=== PATIENT | male | born 1950 | race Two or more races ===

== ENCOUNTER 2019-12-11 07:42 | Emergency (ER) | payer OTHER ==
[2019-12-11 07:49] VITALS: BP 160/72; PULSE 67; TEMP 98.6; BMI 24.0
--- NOTE | 2019-12-11 08:01 | PDOC ---
Rapid Medical Evaluation Chief Complaint: Poison [place],Poison Yanelis Exposure Time Seen by Provider: 12/11/19 07:52 Medical Evaluation: Allergies Allergy/AdvReac Type Severity Reaction Status Date / Time No Known Allergies Allergy Verified 12/11/19 07:49 Vital Signs Temp Pulse Resp BP Pulse Ox 98.6 F 67 16 160/72 97 12/11/19 07:45 12/11/19 07:45 12/11/19 07:45 12/11/19 07:45 12/11/19 07:45 12/11/19 07:59 CC: had poison yanelis, txd with prednisone, now with large blisters to rt ankle, no other complaints Exam: large (4x 3) bullae to anterior/distal aspect of tib/fib, surrounding skin intact Plan: ft Discharge Disposition - Diagnosis Bullae - Discharge Dispostion Condition at time of disposition: Stable - Referrals Referrals: Candy Ray MD [Primary Care Provider] - - Patient Instructions - Post Discharge Activity
--- NOTE | 2019-12-11 08:30 | PDOC ---
History of Present Illness - General Chief Complaint: Poison Tina,Poison Katie Exposure Stated Complaint: Poison Tina,Poison Katie Exposure Time Seen by Provider: 12/11/19 07:52 History Source: Patient Exam Limitations: No Limitations - History of Present Illness Initial Comments: 12/11/19 08:24 69yo M with a PMH of BPH and asthma who presents with 5 weeks of a pruritic rash on his wrists and ankles that he attributes to poison katie from his garden. He states he has been using corstisone [address] the [facility] pharmacist, but that this may have made the lesions more red and raised. He called his PCP, Dr. Costa, who prescribed an 8 day course of oral steroids. Towards the end of this course, large bullae appeared on his ankles. The rash is still itchy and the bullae are tense and mildly painful. Most of the lesions on his wrists have improved, and some of the vesicles have bursted. He has never had this before. He came to the ED today because two of the bullae on his right ankle merged. Denies fever/chills. Denies bleeding. PMH: as above PSH: none Meds: BPH and asthma meds (unsure of name) Allergies: none SH: denies alc/tob/drug use FH: no similar lesions in family Past History - Medical History Allergies/Adverse Reactions: Allergies Allergy/AdvReac Type Severity Reaction Status Date / Time No Known Allergies Allergy Verified 12/11/19 07:49 Home Medications: Ambulatory Orders Methylprednisolone [Medrol Dose Tahir] 4 mg PO ASDIR 12/11/19 predniSONE [Deltasone -] 20 mg PO DAILY #21 tablet 12/11/19 Asthma: Yes COPD: No - Immunization History Immunization Up to Date: No - Psycho-Social/Smoking History Smoking History: Never smoked Have you smoked in the past 12 months: No Information on smoking cessation initiated: No - Substance Abuse Hx (Audit-C & DAST Scrn) How often the patient has a drink containing alcohol: Never Score: In Men: 4 or > Positive; In Women: 3 or > Positive: 0 Screen Result (Pos requires Nsg. Audit-10AR): Negative In the last yr the pt used illegal drug/Rx for NonMed reason: No Score: Yes response is considered Positive: 0 Screen Result (Positive result requires Nsg. DAST-10): Negative Review of Systems - Review of Systems Able to Perform ROS?: Yes Is the patient limited Occitan proficient: Yes Constitutional: No: Chills, Fever HEENTM: No: Eye Pain, Blurred Vision Respiratory: No: Cough, Shortness of Breath Cardiac (ROS): No: Chest Pain, Chest Tightness ABD/GI: No: Diarrhea, Vomiting : No: Burning, Dysuria Musculoskeletal: No: Joint Pain, Muscle Pain Integumentary: Yes: Pruritus, Rash Neurological: No: Headache, Numbness Psychiatric: No: Anxiety, Depression Endocrine: No: Intolerance to Cold, Intolerance to Heat *Physical Exam - Vital Signs Last Vital Signs Temp Pulse Resp BP Pulse Ox 98.6 F 67 16 160/72 97 12/11/19 07:45 12/11/19 07:45 12/11/19 07:45 12/11/19 07:45 12/11/19 07:45 - Physical Exam General Appearance: No: Apparent Distress HEENT: positive: EOMI, ISSA, Pharynx Normal Neck: positive: Supple Respiratory/Chest: positive: Lungs Clear Cardiovascular: positive: Regular Rhythm, Regular Rate Gastrointestinal/Abdominal: positive: Soft. negative: Tender Musculoskeletal: positive: Normal Inspection Extremity: positive: Other (Many vessicles on wrists and ankles, R>L. Large bullae on ankles R>L. No erythema, exudate, fluctance. ) Neurologic: positive: Alert Medical Decision Making - Medical Decision Making 12/11/19 08:34 69yo M with a PMH of BPH and asthma who presents with 5 weeks of a pruritic rash on his wrists and ankles that he attributes to poison katie from his garden. Denies systemic symptoms. Vitals reassuring. Physical exam notable for vesicles on wrists/ankles R>L, bullae on ankles R>L, without erythema, exudate or fluctuance. Most likely contact dermatitis from poison katie or related species given the history and exam. Bullous pemphigoid much less likely given location and history. Complicating cellulitis not suspected given lack of erythema. It is possible that he had some rebound symptoms from the short steroid course, but likely just a continuation of original symptoms. -14 day course oral steroids -PO benadryl PRN -DC with PCP f/u Discharge - Discharge Information Problems reviewed: Yes Clinical Impression/Diagnosis: Bullae Condition: Stable Disposition: HOME - Admission No - Additional Discharge Information Prescriptions: predniSONE [Deltasone -] 20 mg PO DAILY #21 tablet - Follow up/Referral Referrals: Candy Ray MD [Primary Care Provider] - - Patient Discharge Instructions Patient Printed Discharge Instructions: Poison Katie, Poison Tina, Poison [place] Additional Instructions: You were seen in the ED for your rash from poison KATIE. You were discharged home with a 14 day course of prednisone (40mg x7days then 20mg x7days). Take benadryl as needed for itchiness. Please stop applying the cortisone cream. You can apply lotion and wash the area as needed. Please call your doctor or return to the ED if you develop pain, warmth, spreading of rash, fever, chills, nausea, vomiting, or any other reason. - Post Discharge Activity
--- NOTE | 2019-12-11 09:15 | PDOC ---
Attending Attestation - Resident Resident Name: Darvin Solano - ED Attending Attestation I have performed the following: I have examined & evaluated the patient, The case was reviewed & discussed with the resident, I agree w/resident's findings & plan - HPI HPI: 12/11/19 09:08 69-year-old male presents for evaluation of persistent b/l wrist and right ankle poison jaki. Initial exposure about 5 weeks ago, after about [address] Ray and took medrol dose pack for 8 days with improved sxs. He also applied hydrocortisone cream. After pack completed, sxs worsened again. now presents for redness/itching to R wrist and persistent blisters to R ankle. no f/c, no sensory/motor deficit. - Physicial Exam PE: 12/11/19 09:16 Afebrile, vital signs stable Well-appearing, ambulatory in the ED without discomfort Superficial redness/irritation in a linear pattern over the ventral aspect of the right wrist, small 7 mm scabs, no cellulitis/tenderness/warmth. Resolving scab to L wrist, no rash. Two intact blisters to anterior R ankle, 5cm and 3cm in size without surrounding erythema/cellulitis, no swelling or tenderness. no joint effusions, FROM all joints, nvi distally - Medical Decision Making 12/11/19 09:19 69-year-old male with poison jaki exposure now with resolving lesions and blister with seemingly persistent active rash of right wrist, no evidence of s uperimposed infection/cellulitis, no deep tissue or joint involvement. No systemic symptoms of fevers or chills, well-appearing. Will extend course of systemic steroids with taper No indications for antibiotics at this time Has a follow-up with Dr. Ray, understands return criteria Discharge - Discharge Information Problems reviewed: Yes Clinical Impression/Diagnosis: Bullae, Poison jaki dermatitis Condition: Stable - Follow up/Referral Referrals: Candy Ray MD [Primary Care Provider] - - Patient Discharge Instructions - Post Discharge Activity
[2019-12-11] MEDS ORDERED: diphenhydrAMINE HCL 25 MG CAPSULE (FP) PO ONE ×2 (09:17→09:24)
== END 2019-12-11 09:35 | disposition home or self-care (01) ==
LOC: JER 07:42
DX: L13.9 Bullous disorder, unspecified (principal); L23.7 Allergic contact dermatitis due to plants, except food
CPT/HCPCS: 99284-25

== ENCOUNTER 2023-03-17 04:32 | Day surgery (SDC) | payer OTHER ==
[2023-03-14 08:51] VITALS: BMI 23.1
[2023-03-17 11:52] VITALS: TEMP 97.5
[2023-03-17 12:19] VITALS: PULSE 55
[2023-03-17 12:34] VITALS: BP 130/57; RESP 18
== END 2023-03-17 12:38 | disposition home or self-care (01) ==
LOC: JASU-ENDO 04:32
PROVIDERS: ATTEND Internal Medicine Gastroenterology
PROC: 0DJD8ZZ Inspection of Lower Intestinal Tract, Via Natural or Artificial Opening Endoscopic (ICD-10-PCS; principal; 2023-03-17 11:30)
DX: Z12.11 Encounter for screening for malignant neoplasm of colon (principal); R19.5 Other fecal abnormalities